=== PATIENT | male | born 1965 | race Caucasian/White ===

== ENCOUNTER 2020-07-24 11:59 | Emergency (ER) | payer SELFPAY ==
[~2020-07-24] VITALS: Ht 182.9 cm; Wt 83.0 kg
[2020-07-24] MEDS ORDERED: MULTIVIT INFUSN,ADULT 4,VIT K 10 ML, THIAMINE INJ 100 MG, FOLIC ACID INJ 1 MG in IV NOR... IV ONE (12:15)
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
[2020-07-24 12:29] LABS: BASO # 0.1 x10^3/uL (0.0-0.2); BASO % 1 % (0-3); EOS # 0.3 x10^3/uL (0.0-0.7); EOS % 4 % (0-3); HEMATOCRIT 38.4 % (39.0-53.0); HEMOGLOBIN 13.8 g/dL (13.0-17.5); LYMPH % 24 % (24-48); MEAN CORPUSCULAR HEMOGLOBIN 37 pg (25-35); MEAN CORPUSCULAR HGB CONC 36 g/dL (31-37); MEAN CORPUSCULAR VOLUME 103 fL (79-100); MONO # 0.5 x10^3/uL (0.0-1.1); MONO % 6 % (0-9); NEUT # 5.5 x10^3/uL (1.8-7.7); NEUT % 65 % (31-73); PLATELET COUNT 311 x10^3/uL (140-400); RED BLOOD COUNT 3.74 x10^6/uL (4.30-5.70); RED CELL DISTRIBUTION WIDTH 13.1 % (11.5-14.5); WHITE BLOOD COUNT 8.5 x10^3/uL (4.0-11.0)
[2020-07-24 12:42] LABS: CALCIUM 8.2 mg/dL (8.5-10.1); CREATININE 0.8 mg/dL (0.7-1.3); GFR 101.1; POTASSIUM 3.9 mmol/L (3.5-5.1)
[2020-07-24 12:45] LABS: ALBUMIN 3.9 g/dL (3.4-5.0); MAGNESIUM 2.3 mg/dL (1.8-2.4); TOTAL BILIRUBIN 0.4 mg/dL (0.2-1.0); TOTAL PROTEIN 7.9 g/dL (6.4-8.2)
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
[2020-07-24] MEDS ORDERED: DIPH,PERTUSS(ACELL),TET VAC/PF 0.5 ML SYRINGE. VAX IM ONE (13:30)
[2020-07-24 15:52] LABS: BILIRUBIN,URINE NEGATIVE (NEG); CLARITY,URINE CLEAR; COLOR,URINE YELLOW; NITRITE,URINE NEGATIVE (NEG); PROTEIN,URINE NEGATIVE (NEG-TRACE); UROBILINOGEN,URINE 0.2 mg/dL (0.2 mg/dL)
[2020-07-24 15:57] LABS: BARBITURATES NEG (NEG); BENZODIAZEPINES NEG (NEG); CANNABINOIDS NEG (NEG); COCAINE NEG (NEG); METHADONE NEG (NEG); OPIATES NEG (NEG); PHENCYCLIDINE NEG (NEG)
[2020-07-24 16:01] LABS: AMPHETAMINE/METHAMPHETAMINE NEG (NEG)
[2020-07-24 16:15] LABS: BACTERIA,URINE FEW /HPF (0-FEW); RBC,URINE RARE /HPF (0-2); WBC,URINE 0 /HPF (0-4)
[2020-07-24 20:51] VITALS: BP 99/54
== END 2020-07-24 21:30 | disposition home or self-care (01) ==
LOC: ER 11:59
DX: S00.81XA Abrasion of other part of head, initial encounter (principal); S50.812A Abrasion of left forearm, initial encounter; S60.419A Abrasion of unspecified finger, initial encounter; S50.811A Abrasion of right forearm, initial encounter; F10.120 Alcohol abuse with intoxication, uncomplicated; R51.9 Headache, unspecified; Y90.8 Blood alcohol level of 240 mg/100 ml or more; W18.39XA Other fall on same level, initial encounter; Y93.89 Activity, other specified; Y92.89 Other specified places as the place of occurrence of the external cause; Y99.8 Other external cause status
CPT/HCPCS: 36415; 70450; 80053; 80307; 81001; 83735; 85025; 90471; 90715; 96365; 99285; G0480; J3411; J3490; J7030

== ENCOUNTER 2021-06-25 10:18 | Inpatient (IN) | payer SELFPAY ==
[~2021-06-25] VITALS: Ht 182.9 cm; Wt 81.8 kg
[2021-06-25] VITALS (7 sets, daily range): BP systolic 118–130; BP diastolic 71–87
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
[2021-06-25] MEDS ORDERED: IBUPROFEN 200 MG TABLET. PO ONE (10:45)
[2021-06-25] MEDS ORDERED: LIDOCAINE 1% Multi-Dose 20 ML VIAL. INJ ONE (11:30)
[2021-06-25] MEDS ORDERED: IV RINGERS,LACTATED 1000ML 1,000 ML IV SCH (12:15)
[2021-06-25] MEDS ORDERED: PROCHLORPERAZINE 10 MG/2 ML VIAL. IVP PRN (12:15)
[2021-06-25] MEDS ORDERED: MORPHINE SULFATE 2 MG/ML INJ. IVP PRN ×2 (12:15→16:00)
[2021-06-25] MEDS ORDERED: HYDROmorphone 2 MG/ML INJ. IVP PRN (12:15)
[2021-06-25] MEDS ORDERED: fentaNYL PF VIAL 100 MCG/2 ML VIAL IVP PRN ×2 (12:15)
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
[2021-06-25 12:32] LABS: CALCIUM 8.4 mg/dL (8.5-10.1); CREATININE 0.9 mg/dL (0.7-1.3); GFR 87.9; POTASSIUM 4.4 mmol/L (3.5-5.1)
[2021-06-25 12:37] LABS: BASO # 0.2 x10^3/uL (0.0-0.2); BASO % 1 % (0-3); EOS # 0.2 x10^3/uL (0.0-0.7); EOS % 2 % (0-3); HEMOGLOBIN 14.7 g/dL (13.0-17.5); LYMPH # 1.9 x10^3/uL (1.0-4.8); LYMPH % 16 % (24-48); MEAN CORPUSCULAR HEMOGLOBIN 36 pg (25-35); MEAN CORPUSCULAR HGB CONC 35 g/dL (31-37); MEAN CORPUSCULAR VOLUME 103 fL (79-100); MONO # 0.7 x10^3/uL (0.0-1.1); MONO % 6 % (0-9); NEUT # 8.7 x10^3/uL (1.8-7.7); NEUT % 75 % (31-73); PLATELET COUNT 240 x10^3/uL (140-400); RED BLOOD COUNT 4.07 x10^6/uL (4.30-5.70); WHITE BLOOD COUNT 11.6 x10^3/uL (4.0-11.0)
[2021-06-25 12:49] LABS: INFLUENZA A PATIENT NEGATIVE (NEGATIVE); INFLUENZA B PATIENT NEGATIVE (NEGATIVE)
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
[2021-06-25] MEDS ORDERED: BUPIVACAINE MPF 0.5% 30 ML VIAL. ONE (13:32)
[2021-06-25] MEDS ORDERED: LIDOCAINE 1% Multi-Dose 20 ML VIAL. ONE (13:32)
[2021-06-25] MEDS ORDERED: PROPOFOL 10 MG/ML (20ML) VIAL. IV ONE ×2 (13:41→14:58)
[2021-06-25] MEDS ORDERED: SUCCINYLCHOLINE 200 MG/10 ML VIAL. ONE (13:41)
[2021-06-25] MEDS ORDERED: LIDOCAINE 2% PF 5 ML VIAL. ONE (13:41)
[2021-06-25] MEDS ORDERED: SEVOFLURANE 16 TO 30 MINUTES. IH ONE (13:42)
[2021-06-25] MEDS ORDERED: fentaNYL PF VIAL 100 MCG/2 ML VIAL ONE (13:42)
[2021-06-25] MEDS ORDERED: BUPIVACAINE MPF 0.25% 30 ML VIAL. ONE (13:51)
[2021-06-25] MEDS ORDERED: KETOROLAC 30 MG/ML VIAL. ONE (14:15)
[2021-06-25] MEDS ORDERED: ceFAZolin SODIUM IV Push 1 GM VIAL. IVP ONE (14:15)
[2021-06-25] MEDS ORDERED: ONDANSETRON PF 4 MG/2 ML VIAL. ONE (14:15)
[2021-06-25] MEDS ORDERED: DEXAMETHASONE SOD PHOS 4 MG/ML VIAL ONE (14:15)
[2021-06-25] MEDS ORDERED: DEXTROSE 50% 25 GM / 50ML DISP.SYRIN. IV PRN (15:15)
[2021-06-25] MEDS ORDERED: ACETAMINOPHEN 325 MG TABLET. PO ONE (15:15)
[2021-06-25] MEDS ORDERED: oxyCODONE/APAP 5/325 1 TAB TABLET PO ONE (15:15)
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
--- NOTE | 2021-06-25 16:32 | RAD ---
EXAM: Left foot, 3 views. HISTORY: Fracture fixation. COMPARISON: 06/25/2021 FINDINGS: 3 views of the left foot are obtained. There has been interval reduction of the first metat arsal phalangeal joint with a percutaneous pin. There are also paired percutaneous pins traversing a comminuted distal second metatarsal fracture. There is external casting material which limits evaluat ion of bony detail. There is incidental enthesopathy at the Achilles tendon insertion. IMPRESSION: 1. Interval reduction of the first metatarsal phalangeal joint into anatomic alignment with percutane ous pinning. 2. Percutaneous pins traversing a comminuted distal second metatarsal fracture. Electronically signed by: Magy Fernandez MD (06/25/2021 4:30 PM) [id number]
[2021-06-26 03:02] VITALS: BP 138/65
[2021-06-26 07:00] VITALS: BP 133/78
[2021-06-26] MEDS: oxyCODONE/APAP 5/325 1 TAB TABLET PO PRN ×2 (08:15→16:56)
[2021-06-26] MEDS ORDERED: IBUP-1007 PO (10:59)
[2021-06-26 11:00] VITALS: BP 141/73
--- NOTE | 2021-06-26 11:02 | DISCH ---
DISCHARGE INSTRUCTIONS Condition on Discharge Condition on Discharge: Stable Activity After Discharge Activity Instructions for Disc: Resume previous activity, Activity as tolerated Weight Bearing Status after Di: Non weight bearing Diet after Discharge Diet after Discharge: Regular Follow-Up Follow up with: PCP within 2 weeks of discharge Follow Up With: ITALIA Ag MD June 26, 2021 11:02
--- NOTE | 2021-06-26 11:07 | DISCH ---
DISCHARGE INSTRUCTIONS Condition on Discharge Condition on Discharge: Stable Activity After Discharge Activity Instructions for Disc: Resume previous activity, Activity as tolerated Weight Bearing Status after Di: Non weight bearing (Nonweightbearing for 6 weeks until seen by podiatry) Diet after Discharge Diet after Discharge: Regular Follow-Up Follow up with: PCP within 2 weeks of discharge Follow Up With: Podiatry as scheduled ITALIA RAMIREZ MD June 26, 2021 11:07
[2021-06-26 15:00] VITALS: BP 143/78
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
--- NOTE | 2021-06-26 17:23 | PDOC ---
PROGRESS NOTES Date of Service DATE: 06/26/21 TIME: 17:14 Subjective Subjective [DOS 06/25] right first MTPJ closed reduction with percutaneous pinning, second metatarsal shaft fracture close reduction with percutaneous pinning Patient was seen at bedside. Denies overnight events or constitutional symptoms. The dressing has been kept clean and dry and tolerated well. The surgical foot is elevated on two pillows with the toes near the heart level. Patient denies any significant postoperative pain to the right lower extremity. Patient has been working with PT on using a walker while remain nonweightbearing to right lower extremity. Objective Objective Vital Signs Date Time Temp Pulse Resp B/P (MAP) Pulse Ox O2 Delivery O2 Flow Rate FiO2 06/26/21 16:56 Room Air 06/26/21 15:00 98.0 64 18 143/78 (99) 97 98.0 06/25/21 20:00 10.0 Intake and Output 06/26/21 07:00 Intake Total 2520 ml Output Total 1405 ml Balance 1115 ml Intake Oral 2120 ml IV Total 400 ml Output Urine Total 1400 ml Estimated Blood Loss 5 ml Physical Exam Physical Exam General: Pleasant without apparent distress, AOx3 Right lower extremity focused Dermatology: -Splint is in place and kept clean, dry without any strikethrough Vascular: -Foot is warm to touch with CFT less than 3 seconds x 5 Neurology: -Light touch sensation diminished to the level of digits 1 through 5 MSK: -Able to move digits 1 through 5 -Calf is soft and nontender Assessment Assessment Problems Medical Problems: (1) Dislocation of great toe, right, closed Status: Acute (2) Metatarsal fracture Status: Acute Plan Plan of Care Date of surgery: 06/25/21 Right first MTPJ closed reduction with percutaneous pinning, second metatarsal shaft fracture closed reduction and percutaneous pinning -Keep the dressing clean, dry and intact -I explained to patient that he has percutaneous pins exposed from the big toe and second toe. Any weightbearing activity may potentially bend/break the pins, cause worsening swelling and possible infection. Patient verbalized understanding -No antibiotic therapy currently or indicated -Weightbearing restriction: Nonweightbearing to the right lower extremit. patient to be nonweightbearing for 6 weeks [2 weeks in the splint in 4 weeks in the cast] to allow adequate osseous bridging and soft tissue maturation across the first MTPJ. -Physical therapy: PT has trained patient on how to use a walker while remain nonweightbearing to the right lower extremity -Nurse communication: -Please dispense an E boot to right lower extremity so that patient can get on the bus. Per patient, he is not allowed to get on the bus with a splint or cast on without a boot. -Encouraged compliance with incentive spirometry -Pain management with RICE therapy. May consider dispensing tramadol 50 mg 4 times daily, as needed for 7 days if appropriate -No antibiotics are indicated upon discharge Dispo: My plan was to have patient placed in a SNF for postop recovery. However given the social complexity, noninsured nature, patient was not able to be placed anywhere. Socially, patient is homeless but says that he has 2 brothers the area that may allow him to stay over for short period of time. I explained the importance of keeping the splint clean, dry, intact and remain nonweightbearing to right lower extremity to prevent any possible complications and allow adequate osseous healing. The complications include infection, worsening swelling, pain, wound dehiscence, pin complications, pin tract infection and etc. Patient verbalized understanding. Patient does not have a phone for us to reach out for postoperative appointment. However I told him to come to see me on Thursday in the morning anytime in my outpatient clinic. I will see him for skin check and replace the splint. Patient verbalized agreement. Pending boot placement and patient will likely be discharged tomorrow and patient will find a place himself during postoperative recovery. Comment Review of Relevant I have reviewed the following items darryl (where applicable) has been applied. Labs Laboratory Tests Test 06/25/21 12:06 White Blood Count 11.6 x10^3/uL (4.0-11.0) Red Blood Count 4.07 x10^6/uL (4.30-5.70) Hemoglobin 14.7 g/dL (13.0-17.5) Hematocrit 42.0 % (39.0-53.0) Mean Corpuscular Volume 103 fL (79-100) Mean Corpuscular Hemoglobin 36 pg (25-35) Mean Corpuscular Hemoglobin Concent 35 g/dL (31-37) Red Cell Distribution Width 13.0 % (11.5-14.5) Platelet Count 240 x10^3/uL (140-400) Neutrophils (%) (Auto) 75 % (31-73) Lymphocytes (%) (Auto) 16 % (24-48) Monocytes (%) (Auto) 6 % (0-9) Eosinophils (%) (Auto) 2 % (0-3) Basophils (%) (Auto) 1 % (0-3) Neutrophils # (Auto) 8.7 x10^3/uL (1.8-7.7) Lymphocytes # (Auto) 1.9 x10^3/uL (1.0-4.8) Monocytes # (Auto) 0.7 x10^3/uL (0.0-1.1) Eosinophils # (Auto) 0.2 x10^3/uL (0.0-0.7) Basophils # (Auto) 0.2 x10^3/uL (0.0-0.2) Sodium Level 142 mmol/L (136-145) Potassium Level 4.4 mmol/L (3.5-5.1) Chloride Level 104 mmol/L (98-107) Carbon Dioxide Level 25 mmol/L (21-32) Anion Gap 13 (6-14) Blood Urea Nitrogen 12 mg/dL (8-26) Creatinine 0.9 mg/dL (0.7-1.3) Estimated GFR (Cockcroft-Gault) 87.9 Glucose Level 89 mg/dL (70-99) Calcium Level 8.4 mg/dL (8.5-10.1) Ethyl Alcohol Level 216 mg/dL (0-10) Influenza Type A Antigen Negative (NEGATIVE) Influenza Type B Antigen Negative (NEGATIVE) SARS-CoV-2 Antigen (Rapid) Negative (NEGATIVE) Medications Current Medications Ibuprofen (Motrin) 600 mg 1X ONCE PO Last administered on 06/25/21at 10:39; Start 06/25/21 at 10:45; Stop 06/25/21 at 10:46; Status DC Lidocaine HCl (Lidocaine 1% 20ml Vial) 20 ml 1X ONCE INJ Last administered on 06/25/21at 11:35; Start 06/25/21 at 11:30; Stop 06/25/21 at 11:31; Status DC Fentanyl Citrate (Fentanyl 2ml Vial) 25 mcg PRN Q5MIN PRN IVP MILD PAIN 1-3; Start 06/25/21 at 12:15; Stop 06/25/21 at 16:27; Status DC Fentanyl Citrate (Fentanyl 2ml Vial) 50 mcg PRN Q5MIN PRN IVP MODERATE PAIN 4- 6; Start 06/25/21 at 12:15; Stop 06/25/21 at 16:27; Status DC Morphine Sulfate (Morphine Sulfate) 1 mg PRN Q10MIN PRN IVP SEVERE PAIN 7-10; Start 06/25/21 at 12:15; Stop 06/25/21 at 16:27; Status DC Ringer's Solution 1,000 ml @ 30 mls/hr Q24H IV Last administered on 06/25/21at 12:29; Start 06/25/21 at 12:15; Stop 06/25/21 at 16:57; Status DC Hydromorphone HCl (Dilaudid) 0.5 mg PRN Q10MIN PRN IVP SEVERE PAIN 7-10, 2nd CHOICE; Start 06/25/21 at 12:15; Stop 06/25/21 at 16:27; Status DC Prochlorperazine Edisylate (Compazine) 5 mg PACU PRN PRN IVP NAUSEA, MRX1; Start 06/25/21 at 12:15; Stop 06/25/21 at 16:27; Status DC Lidocaine HCl (Lidocaine 1% 20ml Vial) 20 ml STK-MED ONCE .ROUTE ; Start 06/25/21 at 13:32; Stop 06/25/21 at 13:32; Status DC Bupivacaine HCl (Sensorcaine Mpf 0.5%) 30 ml STK-MED ONCE .ROUTE ; Start 06/25/21 at 13:32; Stop 06/25/21 at 13:32; Status DC Propofol (Diprivan) 200 mg STK-MED ONCE IV ; Start 06/25/21 at 13:41; Stop 06/25/21 at 13:42; Status DC Lidocaine HCl (Lidocaine Pf 2% Vial) 5 ml STK-MED ONCE .ROUTE ; Start 06/25/21 at 13:41; Stop 06/25/21 at 13:42; Status DC Succinylcholine Chloride (Anectine) 200 mg STK-MED ONCE .ROUTE ; Start 06/25/21 at 13:41; Stop 06/25/21 at 13:42; Status DC Fentanyl Citrate (Fentanyl 2ml Vial) 100 mcg STK-MED ONCE .ROUTE ; Start 06/25/21 at 13:42; Stop 06/25/21 at 13:42; Status DC Sevoflurane (Ultane) 15 ml STK-MED ONCE IH ; Start 06/25/21 at 13:42; Stop 06/25/21 at 13:42; Status DC Bupivacaine HCl (Sensorcaine Mpf 0.25%) 30 ml STK-MED ONCE .ROUTE Last administered on 06/25/21at 14:36; Start 06/25/21 at 13:51; Stop 06/25/21 at 13:52; Status DC Ketorolac Tromethamine (Toradol 30mg Vial) 30 mg STK-MED ONCE .ROUTE ; Start 06/25/21 at 14:15; Stop 06/25/21 at 14:15; Status DC Dexamethasone Sodium Phosphate (Decadron) 4 mg STK-MED ONCE .ROUTE ; Start 06/25/21 at 14:15; Stop 06/25/21 at 14:15; Status DC Ondansetron HCl (Zofran) 4 mg STK-MED ONCE .ROUTE ; Start 06/25/21 at 14:15; Stop 06/25/21 at 14:15; Status DC Cefazolin Sodium (Ancef) 1 gm STK-MED ONCE IVP ; Start 06/25/21 at 14:15; Stop 06/25/21 at 14:15; Status DC Propofol (Diprivan) 200 mg STK-MED ONCE IV ; Start 06/25/21 at 14:58; Stop 06/25/21 at 14:58; Status DC Dextrose (Dextrose 50%-Water Syringe) 12.5 gm PRN Q15MIN PRN IV SEE COMMENTS; Start 06/25/21 at 15:15 Acetaminophen (Tylenol) 650 mg 1X ONCE PO ; Start 06/25/21 at 15:15; Stop 06/25/21 at 15:16; Status DC Oxycodone/ Acetaminophen (Percocet 5/325) 1 tab 1X ONCE PO ; Start 06/25/21 at 15:15; Stop 06/25/21 at 15:16; Status DC Oxycodone/ Acetaminophen (Percocet 5/325) 1 tab PRN Q6HRS PRN PO MODERATE TO SEVERE PAIN Last administered on 06/26/21at 16:56; Start 06/25/21 at 16:00 Morphine Sulfate (Morphine Sulfate) 2 mg PRN Q2HR PRN IVP MODERATE TO SEVERE PAIN; Start 06/25/21 at 16:00 Active Scripts Active Ibuprofen 600 Mg Tablet 600 Mg PO PRN Q6HRS PRN 7 Days Vitals/I & O Vital Sign - Last 24 Hours 06/25/21 06/25/21 06/25/21 06/25/21 17:15 18:15 20:00 23:12 Temp 98.0 98.6 98.5 98.0 98.6 98.5 Pulse 80 76 80 Resp 18 18 18 B/P (MAP) 121/74 (90) 119/76 (90) 123/80 (94) Pulse Ox 96 95 96 O2 Delivery Room Air Room Air Room Air Room Air O2 Flow Rate 10.0 06/26/21 06/26/21 06/26/21 06/26/21 03:02 07:00 08:00 08:15 Temp 97.4 97.9 97.4 97.9 Pulse 85 69 Resp 18 18 B/P (MAP) 138/65 (89) 133/78 (96) Pulse Ox 94 100 O2 Delivery Room Air Room Air Room Air Room Air 06/26/21 06/26/21 06/26/21 06/26/21 08:45 11:00 15:00 16:56 Temp 97.8 98.0 97.8 98.0 Pulse 71 64 Resp 18 18 B/P (MAP) 141/73 (95) 143/78 (99) Pulse Ox 97 97 O2 Delivery Room Air Room Air Room Air Room Air Intake and Output 06/25/21 06/25/21 06/26/21 15:00 23:00 07:00 Intake Total 920 ml 1600 ml Output Total 500 ml 505 ml 400 ml Balance -500 ml 415 ml 1200 ml Justifications for Admission Other Justification JESSICA AYALA DPShorty June 26, 2021 17:22
[2021-06-26 19:00] VITALS: BP 134/81
[2021-06-26] MEDS ORDERED: IBUPROFEN 200 MG TABLET. PO PRN (19:00)
[2021-06-26 23:25] VITALS: BP 135/77
[2021-06-27 03:59] VITALS: BP 150/60
[2021-06-27 04:48] LABS: HEMATOCRIT 41.5 % (39.0-53.0); HEMOGLOBIN 14.5 g/dL (13.0-17.5); RED BLOOD COUNT 4.01 x10^6/uL (4.30-5.70); RED CELL DISTRIBUTION WIDTH 12.9 % (11.5-14.5); WHITE BLOOD COUNT 7.8 x10^3/uL (4.0-11.0)
[2021-06-27 07:00] VITALS: BP 150/82
[2021-06-27] MEDS: IBUPROFEN 200 MG TABLET. PO PRN ×2 (08:51→15:43)
[2021-06-27 11:00] VITALS: BP 139/96
[2021-06-27 19:40] VITALS: BP 140/86
--- NOTE | 2021-06-27 21:01 | NUR ---
Patient & all belongings transported down to ER entrance. Patient transported via wheelchair with aide and RN accompanied with patient's belongings. Patient assisted into [facility] cab.
[2021-06-27 23:47] VITALS: BP 139/54
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
== END 2021-06-27 21:01 | disposition home or self-care (01) | DRG 505 ==
LOC: ER 10:18 → 4 NORTH 12:15 → OBSVTOIN 06-26 14:57
PROVIDERS: ADMIT Internal Medicine; ATTEND Internal Medicine
PROC: 0QSN34Z Reposition Right Metatarsal with Internal Fixation Device, Percutaneous Approach (ICD-10-PCS; principal; 2021-06-26)
PROC: 0RS Upper Joints, Reposition (ICD-10-PCS; 2021-06-26)
DX: S92.321A Displaced fracture of second metatarsal bone, right foot, initial encounter for closed fracture (principal); S93.104A Unspecified dislocation of right toe(s), initial encounter; F10.129 Alcohol abuse with intoxication, unspecified; D75.89 Other specified diseases of blood and blood-forming organs; F17.200 Nicotine dependence, unspecified, uncomplicated; Z20.822 Contact with and (suspected) exposure to COVID-19; M77.9 Enthesopathy, unspecified; S93.129A Dislocation of metatarsophalangeal joint of unspecified toe(s), initial encounter; W50.0XXA Accidental hit or strike by another person, initial encounter; Y09 Assault by unspecified means; Z59.00 Homelessness unspecified
CPT/HCPCS: 28630; 36415; 73630; 80048; 85025; 85027; 87428; A4657; A4930; A6223; A6253; A6402; A6449; A6450; G0378; G0379; G0480; J0330; J0690; J1100; J1885; J2405; J2704; J3010; J3490; J7120; 97116-GP; 97530-GO; 97530-GP; 97535-GO; 99285-25